=== PATIENT | male | born 1990 | race Caucasian/White ===

== ENCOUNTER 2016-05-28 03:01 | Emergency (ER) | payer OTHER ==
[~2016-05-28] VITALS: Ht 167.6 cm; Wt 63.5 kg
[2016-05-28 03:31] LABS: ABSOLUTE NEUTROPHILS 12.9 thou/uL (1.4-8.2); BASOPHILS 0.9 % (0.0-2.0); EOSINOPHILS 2.2 % (0.0-3.0); HEMATOCRIT 47.8 % (42.0-52.0); HEMOGLOBIN 16.6 gm/dL (14.0-18.0); LYMPHOCYTES 18.6 % (24.0-44.0); MCH 29.6 pg (26.0-34.0); MCHC 34.8 % (28.0-37.0); MCV 85.1 fL (80.0-100.0); MONOCYTES 6.9 % (1.0-8.0); PLATELET COUNT 225 thou/uL (150-400); POLYS 71.4 % (36.0-66.0); RBC 5.62 mil/uL (4.50-6.00); RDW 13.1 % (10.5-14.5); WBC 18.1 thou/uL (4.0-11.0)
[2016-05-28 03:36] LABS: CALCIUM 9.2 mg/dL (8.5-10.1); CREATININE 1.3 mg/dL (0.6-1.3); POTASSIUM 3.8 mmol/L (3.5-5.1)
[2016-05-28 04:08] LABS: MANUAL DIFF NO
[2016-05-28] MEDS ORDERED: FLOMAX0.4 MG PO (04:21)
[2016-05-28] MEDS ORDERED: ZOFRAN ODT4 MG PO (04:21)
[2016-05-28] MEDS ORDERED: NORCO 5-325 TA1 EACH PO (04:21)
[2016-05-28 05:04] LABS: URINE BILIRUBIN NEGATIVE (Negative); URINE BLOOD 3+ (Negative); URINE GLUCOSE-RANDOM* NEGATIVE (Negative); URINE KETONES TRACE (Negative); URINE LEUKOCYTES-REFLEX TRACE (Negative); URINE PROTEIN (DIPSTICK) 2+ (Negative)
[2016-05-28 05:08] LABS: URINE COLOR BROWN
[2016-05-28 05:24] LABS: CALCIUM OXALATE 0-3 Few /LPF (None Seen); CASTS None Seen /LPF (None Seen); CRYSTALS None Seen /LPF (None Seen); SQUAMOUS None Seen /LPF (0-3); URINE RBC >20 Many /HPF (0-2); URINE WBC-REFLEX 0-5 Rare /HPF (0-5)
[2016-05-28] MEDS ORDERED: BACTRIM DS TAB1 EACH PO (05:34)
[2016-05-28 06:15] VITALS: BP 132/76
== END 2016-05-28 06:15 | disposition home or self-care (01) ==
LOC: ER 03:01
PROVIDERS: Emergency Medicine
DX: N20.1 Calculus of ureter (principal); N39.0 Urinary tract infection, site not specified; F12.10 Cannabis abuse, uncomplicated